=== PATIENT | female | born 1965 | race African-American/Black ===

== ENCOUNTER 2020-12-30 08:34 | Emergency (ER) | payer SELFPAY ==
[~2020-12-30] VITALS: Ht 175.3 cm; Wt 121.1 kg
[2020-12-30 11:34] VITALS: BP 164/94
== END 2020-12-30 11:36 | disposition home or self-care (01) ==
LOC: EDBD 08:34 → ER 08:34
DX: S09.8XXA Other specified injuries of head, initial encounter (principal); M79.10 Myalgia, unspecified site; R90.82 White matter disease, unspecified; R51.9 Headache, unspecified; I10 Essential (primary) hypertension; Z98.51 Tubal ligation status; W01.0XXA Fall on same level from slipping, tripping and stumbling without subsequent striking against object, initial encounter; Y93.89 Activity, other specified; Y92.89 Other specified places as the place of occurrence of the external cause; Y99.8 Other external cause status
CPT/HCPCS: 70450; 72040